=== PATIENT | male | born 1985 | race Caucasian/White ===

== ENCOUNTER 2022-10-10 18:03 | Emergency (ER) | payer MEDICAID, SELFPAY ==
[2022-10-10 18:06] VITALS: BP 160/92; PULSE 125; RESP 18; TEMP 36.4; O2SAT 100
--- NOTE | 2022-10-10 18:15 | DI.CT_ITS ---
Exam(s) CT HEAD ORBITS WO/W EXAM: CT HEAD ORBITS WO/W CLINICAL HISTORY: globe rupture left eye. TECHNIQUE: Imaging Protocol: Axial computed tomography images with coronal and sagittal reformatted images were created and reviewed. Additionally, pre and post contrast CT of the orbits was performed with intravenous infusion of 100 c c of Omnipaque 350. COMPARISON: No exams were available for comparison FINDINGS: The ventricular system is normal in appearance. No evidence of acute intracranial hemorrhage, mass effect, or midline shift. There is reportedly a history of left ocular globe rupture period abnormal contour of the globe is no popeye consistent with this history period no retro bulbar mass or fluid collection. Unremarkable appea jarrett of the optic nerve and extraocular musculature. No orbital fracture. Unremarkable appearance of right globe and orbit . The temporal bone structures appear intact. Calvarium: Normal. Visualized Paranasal sinuses/Mastoids: Clear. IMPRESSION: Normal cranial CT. Left ocular globe rupture, consistent with history. No additional significant findings RADIATION DOSE DELIVERED: Total DLP Total DLP DATA REPOSITORY: All CT scans at this facility are submitted to the National Radiology Data Registry (NRDR) Dose Index Registry (DIR) with the [employer] (A[employer]). RADIATION OPTIMIZATION: All CT scans at this facility use at least one of these dose optimization te chniques: automated exposure control; mA and/or kV adjustment per patient size (includes targeted exa ms where dose is matched to clinical indication); or iterative reconstruction.
[2022-10-10 18:27] VITALS: BP 159/85; PULSE 108; O2SAT 96
[2022-10-10] MEDS: Normal Saline 1,000 ML 125 ML IV (18:27)
[2022-10-10 18:28] VITALS: O2SAT 98
[2022-10-10] MEDS: Ondansetron 4 MG/2 ML VIAL IVP (18:28)
[2022-10-10] MEDS: MORPHine 4 MG/ML SYR 2 MG IVP (18:29)
--- NOTE | 2022-10-10 18:29 | W.ED.GENAD ---
Discharge Plan Disposition Patient Disposition: Transfer-Acute Inpatient Care Specific Acute Inpt Facility: [facility] Condition: Stable Discharge Details Chief Complaint: EyeProblem Clinical Impression: Rupture of globe Primary Care Provider: None,None ED Provider: Jorden Howard Home Meds and New Rx's Prescriptions: No Action No Known Home Meds Medical Decision Making 37-year-old male history of congenital cardiac anomaly, status post cardiothoracic surgery as an infant, no other medical problems, was struck in the eye with a piece of wood projected from a piece of machinery, extravasation of fluid from left eye, this event happened approximately 30 minutes ago. No other injuries. Evidence of globe rupture left globe, teardrop pupil, extravasation of vitreous humor between lids, eye gently covered with soft gauze, patient initiated on antibiotic prophylaxis including vancomycin and Zosyn, given Tdap, pain control antiemetics, stat call placed to local trauma centers both [facility] and department as patient will need emergent ophthalmologic intervention. Basic labs, CT head and orbits with contrast. 19: 16 patient resting comfortably no acute distress. Clinical and CT evidence of left globe rupture. Cover with empiric antibiotics. From a trauma standpoint airway breathing circulation intact, GCS 15, have discussed case with [facility] trauma surgeon Dr. Padilla and ophthalmology team. Patient has been accepted for transfer will be brought to the emergency department for the operating room, accepting physician Dr Fields Sign Out No HPI General Date/Time Provider Initiated Documentation: 10/10/22 18:04. 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 No other injuries Related Data Home Medications Medication Instructions Recorded Confirmed Unknown [No Known Home Meds] 10/10/22 10/10/22 Allergies Allergy/AdvReac Type Severity Reaction Status Date / Time No Known Allergies Allergy Unverified 10/10/22 18:11 General Stated Complaint: EyeProblem ELAINE: 3 Review of Systems Narrative: Review of Systems Constitutional: negative Eyes: Eye injury ENT: negative Cardiovascular: negative Respiratory: negative Gastrointestinal: negative : negative Musculoskeletal: negative Skin: negative Neurologic: negative Psych: negative PFSH All Active Problems (Updated 10/10/22 @ 19:20 by Jorden Howard MD) Rupture of globe (Acute) Social History Smoking/Tobacco Use Status: Never Smoking risk assessment performed?: Yes Alcohol Intake: current Alcohol Intake frequency: a few times a week Drug use: Never Substance use type: does not use Do you feel safe at home: Yes Do you feel safe in your relationship?: Yes Exam Narrative Exam Narrative: Physical Examination General: alert, awake, cooperative, resting comfortably, no acute distress HEENT: Left globe rupture, ocular contents hanging between the lids, teardrop pupil, vitreous humor extravasating between lids; right intact extraocular motion intact Neck: supple, trachea midline; full ROM Chest: normal to inspection Respiratory: normal respiratory effort, speaking in full sentences, clear to auscultation, no wheezing, rales or rhonchi Cardiac: Tachycardia, regular rhythm, S1S2 intact, no murmurs rubs or gallops GI: abdomen soft, non-tender, non-distended; no palpable mass or hepatosplenomegaly Skin: no lesions, rashes or trauma appreciated Neuro: AAOx3, normal speech, moving all extremities without deficit Psych: Appropriate mood and affect Course Vital Signs Vital signs: Vital Signs Temperature 36.4 C L 10/10/22 18:06 Pulse 125 H 10/10/22 18:06 Respiratory Rate 18 10/10/22 18:06 Blood Pressure 160/92 H 10/10/22 18:06 Pulse Oximetry 100 10/10/22 18:06 Temperature 36.4 C L 10/10/22 18:06 Temperature Source Temporal Artery Scan 10/10/22 18:06 Pulse 125 H 10/10/22 18:06 Respiratory Rate 18 10/10/22 18:06 Respiratory Effort Non-Labored 10/10/22 18:08 Blood Pressure 160/92 H 10/10/22 18:06 Blood Pressure Position Sitting 10/10/22 18:06 Pulse Oximetry 100 10/10/22 18:06 Oxygen Delivery Method Room Air 10/10/22 18:06 Oxygen Flow Rate 0 10/10/22 18:06 Pain Level 0 10/10/22 18:06 PAWSS Have you Been Recently Intoxicated or Drunk Within the Last 30 days?: No Have you Ever Experienced Previous Episodes of Alcohol Withdrawal?: No Have you ever Experienced Withdrawal Seizures?: No Have you ever Experienced Delirium Tremens(DT)s?: No Have you ever undergone Alcohol Rehabilitation Treatment (i.e, inpt ot outpatient treatment programs)?: No Have you ever Experienced Blackouts?: No Have you ever Combined Alcohol with other Downers within the last 90 days?: No Have you ever Combined Alcohol with any other Substance of Abuse during the last 90 days?: No Result: 0
[2022-10-10 18:30] VITALS: O2SAT 95
[2022-10-10 18:31] VITALS: BP 136/76; PULSE 99
[2022-10-10] MEDS: Normal Saline - Diluent 50 ML VIAL IV (18:38)
[2022-10-10] MEDS: Normal Saline Flush 10 ML SYR IVP (18:39)
[2022-10-10] MEDS: Omnipaque 350 MG/ML 100 ML BTL IJ (18:39)
[2022-10-10] MEDS: PIPERACILLIN/TAZO 4.5 GM in Normal Saline 100 ML IVPB (18:48)
[2022-10-10] MEDS: VANCOMYCIN 1,250 MG in Normal Saline 250 ML 166.6666 MG IVPB (19:01)
[2022-10-10 19:02] LABS: Abs Immature Grans 0.01 10^3/uL (0.0-0.06); Absolute Basophil Count 0.03 10^3/uL (0.0-0.2); Absolute Eosinophil Count 0.13 10^3/uL (0.0-0.7); Absolute Lymphocyte Count 1.15 10^3/uL (1.2-3.4); Absolute Neutrophil Count 3.84 10^3/uL (1.2-6.7); Basophils % 0.5; Eosinophils % 2.3; HCT 42.7 % (40.0-50.0); HGB 14.3 g/dL (13.5-17.5); Immature Grans % 0.2; Lymphocytes % 20.7; MCH 28.1 pg (27.0-33.0); MCHC 33.5 % (32.0-36.0); MCV 84 fL (80-95); MPV 10.2 fL (8.0-11.0); Monocytes % 7.2; Neutrophils % 69.1; Platelet Count 295 10^3/uL (130-400); RBC 5.09 10^6/uL (4.36-5.78); RDW 11.9 % (11.8-14.1); RDW-SD 35.8 fL; WBC 5.56 10^3/uL (4.4-10.8)
[2022-10-10 19:16] LABS: INR 1.1 (0.9-1.1); PTT Activated 23.6 sec (21.0-27.5); Prothrombin Time 10.8 sec (9.3-11.0)
--- NOTE | 2022-10-10 19:17 | DI.VRAD_ITS ---
PROCEDURE INFORMATION: Exam: CT Head Without Contrast Exam date and time: 10/10/2022 6:33 PM Age: 37 years old Clinical indication: Injury or trauma; Other: Globe rupture left eye; Injury date: 10/10/22 TECHNIQUE: Imaging protocol: Computed tomography of the head without contrast. Radiation optimization: All CT scans at this facility use at least one of these dose optimization techniques: automated exposure control; mA and/or kV adjustment per patient size (includes targeted exams where dose is matched to clinical indication); or iterative reconstruction. COMPARISON: No relevant prior studies available. FINDINGS: Brain: Normal. No hemorrhage. Unremarkable white matter. No mass effect. Cerebral ventricles: No ventriculomegaly. Paranasal sinuses: Visualized sinuses are unremarkable. No fluid levels. Mastoid air cells: Visualized mastoid air cells are well aerated. Bones/joints: Unremarkable. No acute fracture. Soft tissues: Unremarkable. IMPRESSION: No acute intracranial abnormality. PROCEDURE INFORMATION: Exam: CT Orbits Without and With Contrast Exam date and time: 10/10/2022 6:33 PM Age: 37 years old Clinical indication: Injury or trauma; Other: Globe rupture left eye; Injury date: 10/10/22 TECHNIQUE: Imaging protocol: Computed tomography of the orbits without and with contrast. Radiation optimization: All CT scans at this facility use at least one of these dose optimization techniques: automated exposure control; mA and/or kV adjustment per patient size (includes targeted exams where dose is matched to clinical indication); or iterative reconstruction. COMPARISON: No relevant prior studies available. FINDINGS: Paranasal sinuses: Normal. No air-fluid levels. Orbital cavities: Decreased size and irregular left globe compatible with history of rupture. Bones/joints: No acute fracture. Soft tissues: No significant facial soft tissue swelling. IMPRESSION: 1. Decreased size and irregular left globe compatible with history of rupture. 2. No evidence of osseous injury. Dictated and Authenticated by: Juan A Weaver MD. Ordering:HECTOR Leonardo MD
[2022-10-10 19:34] VITALS: BP 135/72; PULSE 88; TEMP 36.5; O2SAT 97
[2022-10-10 19:39] LABS: ALT 42 U/L (16-63); AST 22 U/L (15-37); Alkaline Phosphatase 76 U/L (46-116); Anion Gap 8.3 mmol/L (3-11); BUN 23 mg/dL (7-18); Bilirubin, Total 0.3 mg/dL (0.2-1.0); CO2 27.7 mmol/L (21.0-32.0); CREATININE 1.1 mg/dL (0.70-1.30); Calcium 8.4 mg/dL (8.5-10.1); Chloride 101 mmol/L (98-107); Estimated GFR 88.12 (mL/min/1.73m2); Glucose 123 mg/dL (74-106); Potassium 4.1 mmol/L (3.5-5.1); Sodium 137 mmol/L (136-145); Total Protein 6.6 g/dL (6.4-8.2)
== END 2022-10-10 19:30 | disposition short-term general hospital (02) ==
PROVIDERS: Emergency Provider Emergency Medicine
DX: S05.32XA Ocular laceration without prolapse or loss of intraocular tissue, left eye, initial encounter (principal); Z23 Encounter for immunization; Y99.0 Civilian activity done for income or pay; W22.8XXA Striking against or struck by other objects, initial encounter
CPT/HCPCS: 36415; 80053; 90471; 96365; 96368; 96375; 99285; 70470; 70482; 85025; 85610; 85730; J2270; J2405; J2543; J3490